=== PATIENT | female | born 1980 | race Caucasian/White ===

== ENCOUNTER 2022-03-16 17:12 | Emergency (ER) | payer OTHER ==
--- NOTE | 2022-03-16 17:44 | ERPHSYRPT ---
- History of Present Illness Time Seen by Provider: 03/16/22 17:30 Source: patient Exam Limitations: no limitations Patient Subjective Stated Complaint: pt here for left side jaw pain for a couple days getting worse, she states it hurts to open mouth, swallow. no injury, she does have a tooth to left side that is fractured Triage Nursing Assessment: pt alert, resp easy, face mask in place, skin w/d/p, pt unable to open mouth wide Physician History: This is a 41-year-old white female patient who the last couple of days had noticed some left jaw tenderness. This morning the tenderness was present but she could eat and seem to be speaking without too much difficulty. However, again, there was tenderness in the left jaw. She presents to the emergency department unable to open her mouth beyond being able to speak. She did not suffer any injury. She has had no past history of any jaw dislocations. She is not on any new medications. She denies any new stressors or increase amount of stress. She is attending nursing school. She states she is never had anything like this before. She has a known lower left molar fractured but nothing been present for several months. Timing/Duration: gradual onset Severity: mild (To moderate left jaw pain) Prearrival Treatment: no prearrival treatment Modifying Factors: Improves With: other (Hurts to open her mouth. Hurts to chew) Associated Symptoms: jaw pain ( Left side mandibular pain) Allergies/Adverse Reactions: No Known Drug Allergies Allergy (Unverified 03/16/22 17:24) Home Medications: Phenazopyridine HCl 200 mg [Pyridium 200 mg] 1 ea DAILY 03/16/22 [History] Hx Tetanus, Diphtheria Vaccination/Date Given: Yes Hx Influenza Vaccination/Date Given: No Hx Pneumococcal Vaccination/Date Given: No Immunizations Up to Date: Yes Travel Risk - International Travel Have you traveled outside of the country in past 3 weeks: No - Coronavirus Screening Are you exhibiting any of the following symptoms?: No Close contact with a COVID-19 positive Pt in past 14-21 Days: No - Vaccine Status Have you recieved a Covid-19 vaccination: No - Review of Systems Constitutional: No Symptoms Eyes: No Symptoms Ears, Nose, & Throat: Other (Left mandibular pain) Respiratory: No Symptoms Cardiac: No Symptoms Abdominal/Gastrointestinal: No Symptoms Genitourinary Symptoms: No Symptoms Musculoskeletal: No Symptoms Skin: No Symptoms Neurological: No Symptoms Psychological: No Symptoms Endocrine: No Symptoms Hematologic/Lymphatic: No Symptoms Immunological/Allergic: No Symptoms All Other Systems: Reviewed and Negative - Past Medical History Pertinent Past Medical History: No - Past Surgical History Past Surgical History: Yes Musculoskeletal: Orthopedic Surgery Female Surgical History: Tubal Ligation Other Surgical History: back - Social History Smoking Status: Never smoker Exposure to second hand smoke: No Drug Use: none Patient Lives Alone: No - Female History Hx Last Menstrual Period: 2 weeks ago Hx Now: No - Nursing Vital Signs Nursing Vital Signs: Initial Vital Signs Temperature 98.2 F 03/16/22 17:20 Pulse Rate 78 03/16/22 17:20 Respiratory Rate 18 03/16/22 17:20 Blood Pressure 150/95 03/16/22 17:20 O2 Sat by Pulse Oximetry 100 03/16/22 17:20 Pain Scale Pain Intensity 7 - Physical Exam General Appearance: no apparent distress, alert, anxiety Eye Exam: bilateral eye: normal inspection, PERRL, EOMI Ear Exam: bilateral ear: auricle normal, canal normal, TM normal Nasal Exam: normal inspection Neck Exam: normal inspection, non-tender, supple, full range of motion Cardiovascular/Respiratory Exam: chest non-tender, no respiratory distress Abdominal Exam: non-tender Neurologic Exam: alert, oriented x 3, cooperative, dialysis technician II-XII nml as tested, normal mood/affect, nml cerebellar function, nml station & gait, sensation nml Skin Exam: normal color, warm, dry SpO2 Interpretation: normal SpO2: 100 O2 Delivery: Room Air - Course Nursing assessment & vital signs reviewed: Yes Ordered Tests: Active Orders 24 hr Category Date Time Status Cold Application STAT Care 03/16/22 17:23 Active FACIAL BONES WO CONTRAST [CT] Stat Exams 03/16/22 17:28 Taken - Progress Progress: improved, pain not gone completely, re-examined Progress Note: 03/16/22 18:39 CT scan of the facial bones without contrast shows no acute fractures or dislocations. This includes the TMJ. Counseled pt/family regarding: diagnosis, need for follow-up, rad results - Departure Departure Disposition: Home Clinical Impression: Jaw pain Condition: Stable Critical Care Time: No Additional Instructions: May alternate ice and heat to the left jaw every 2-3 hours to help with pain control. Take your medication as prescribed. Follow-up with your primary care physician or dentist for further evaluation and management. Prescriptions: Prednisone 10 mg [Deltasone 10 mg] 10 mg PO TID #12 tablet Orphenadrine Citrate 100 mg [Norflex 100 MG Tablet] 100 mg PO BID #10 tab
[2022-03-16] MEDS ORDERED: MORPHINE SULFATE 4 MG INJ IM ONE (18:42)
[2022-03-16] MEDS ORDERED: ZOFRAN ODT 4 MG PO ONE (18:43)
[2022-03-16] MEDS ORDERED: Ativan 2 MG/1 ML VIAL IM ONE (18:43)
[2022-03-16] MEDS ORDERED: ZOFRAN ODT 4 MG ONE (18:49)
[2022-03-16] MEDS ORDERED: Ativan 2 MG/1 ML VIAL ONE (18:49)
[2022-03-16] MEDS ORDERED: MORPHINE SULFATE 4 MG INJ ONE (18:50)
[2022-03-16 19:05] VITALS: BP 157/104; PULSE 80; O2SAT 98
--- NOTE | 2022-03-17 08:35 | XRAY ---
Indication: Left jaw pain. No known injury. Multiple contiguous axial images obtained through the facial bones. Sagittal and coronal reformatted images obtained. Comparison: None A few bilateral dental amalgams produces beam artifact. No acute fracture, suspicious bony lesions, or radiopaque foreign body. Orbits including roof, huang, and floors intact. Floor of both maxillary sinuses demonstrates very minimal mucosal thickening. Remaining paranasal sinuses and nasal passages are clear. Very minimal nasoseptal deviation to the left. TMJ bilaterally symmetric. Visualized noncontrasted soft tissues including base of brain are unremarkable. Impression: Very minimal paranasal sinus disease and very minimal nasal septal deviation. Remaining CT facial bones negative.
== END 2022-03-16 19:10 | disposition home or self-care (01) ==
LOC: ED 17:12
DX: R68.84 Jaw pain (principal); Z79.52 Long term (current) use of systemic steroids; Z79.899 Other long term (current) drug therapy; Z28.310 Unvaccinated for COVID-19
CPT/HCPCS: 70486; 96372; 99283; J2060; J2270; Q0162